=== PATIENT | female | born 1970 | race Caucasian/White ===

== ENCOUNTER 2023-10-26 10:50 | Emergency (ER) | payer OTHER, SELFPAY ==
[2023-10-26 10:51] VITALS: BP 126/68; PULSE 87; RESP 20; TEMP 36.3; O2SAT 100
[2023-10-26 11:21] LABS: Basophils Percent Auto 0.4 % (0.2-1.2); Eosinophils Absolute Auto 0.1 K/mm3 (0-0.3); Eosinophils Percent Auto 2.2 % (0-4.4); Hematocrit 41.6 % (37.0-47.0); Hemoglobin 13.2 g/dL (12.0-15.0); Immature Granulocyte Absolute 0.01 K/mm3 (0.00-0.031); Immature Granulocyte Percent A 0.2 % (0-0.5); Lymphocytes Absolute Auto 1.64 K/mm3 (0.9-3.2); Lymphocytes Percent Auto 32.9 % (18.3-44.2); Mean Corpuscular HGB Conc 31.7 g/dl (32-36); Mean Corpuscular Hemoglobin 32.1 pg (26-34); Mean Corpuscular Volume 101.2 fl (80-100); Mean Platelet Volume 9.5 fl (7.4-10.4); Monocytes Absolute Auto 0.3 K/mm3 (0.1-0.6); Monocytes Percent Auto 6.4 % (2.6-8.5); Neutrophils Absolute Auto 2.9 K/mm3 (1.3-6.7); Neutrophils Percent Auto 57.9 % (45.5-73.1); Platelet Count Result 272 k/mm3 (150-375); Red Blood Count 4.11 M/mm3 (4.2-5.4); Red Cell Distribution Width 11.9 % (11.5-14.5)
[2023-10-26 11:35] LABS: Prothrombin Time 13.1 Seconds (11.1-14.7)
[2023-10-26 11:36] LABS: Alanine Aminotransferase 19 U/L (6-35); Albumin Level 3.9 g/dL (3.5-5.1); Alkaline Phosphatase 55 U/L (38-126); Anion Gap 5 mmol/L (8-16); Aspartate Amino Transferase 24 U/L (14-36); Bilirubin,Total 0.6 mg/dL (0.2-1.3); Blood Urea Nitrogen 11 mg/dL (7-17); Calcium 8.9 mg/dL (8.4-10.2); Carbon Dioxide 32 mmol/L (22-30); Chloride 102 mmol/L (98-107); Estimated CRCL calculation 76 ml/min; Estimated Glomerular Filt Rate > 60; Glucose 103 mg/dL (65-110); Partial Thromboplastin Time 27.7 SECONDS (22.3-36.8); Potassium 4.2 mmol/L (3.4-5.0); Sodium 139 mmol/L (137-145)
[2023-10-26 11:49] VITALS: BP 115/62; PULSE 81; RESP 18; O2SAT 100
--- NOTE | 2023-10-26 11:49 | ED.GENADULT ---
HPI - General Adult General Chief complaint: Unspecified Stated complaint: GI bleed Time Seen by Provider: 10/26/23 11:01 Source: patient Mode of arrival: ambulatory Limitations: no limitations History of Present Illness HPI narrative: This is a 52-year-old female that presents to the emergency department for bright red blood per rectum. Intermittent over the last couple of weeks. Reports seeing bright red blood on the tissue when wiping. Reports she has had some trouble with constipation and has had to strain to have bowel movements. Denies fevers, abdominal pain, or diarrhea. Related Data Allergies Allergy/AdvReac Type Severity Reaction Status Date / Time NKDA Allergy Mild Uncoded 01/02/11 15:26 Review of Systems Review of Systems: CONSTITUTIONAL: Denies fever GASTROINTESTINAL: Denies abdominal pain, nausea, vomiting, or diarrhea. All systems reviewed & are unremarkable except as noted in HPI and below PMFSH Past Medical History Medical History (Updated 10/26/23 @ 11:54 by Esthela Spangler PA-C) History of anxiety Family History Family History (Updated 05/29/14 @ 07:13 by DOCTOR UNKNOWN) Father Family history of amyotrophic lateral sclerosis Social History Social History Smoking status: Never smoker Alcohol intake: current Exam Narrative: GENERAL: Well-appearing, well-nourished, and in no acute distress. HEAD: Normocephalic, atraumatic. EYES: EOMI. CHEST: Clear to auscultation. No respiratory distress. No wheezes rales or rhonchi HEART: Regular rate and rhythm. No murmur heard. Normal peripheral pulses. ABDOMEN: Soft, nontender, nondistended, normal active bowel sounds. EXTREMITIES: Normal range of motion. No edema. SKIN: Warm, dry, no rash. NEURO: No focal deficits. Alert and oriented x3. PSYCH: Normal mood and affect RECTAL: No obvious hemorrhoids or fissures on exam. Hemoccult positive Course Course Emergency Course: Patient updated on workup and agrees with plan of care Vital Signs Vital signs: Vital Signs Temperature 97.4 F L 10/26/23 10:51 Pulse Rate 87 10/26/23 10:51 Respiratory Rate 20 10/26/23 10:51 Blood Pressure 126/68 10/26/23 10:51 Pulse Oximetry 100 10/26/23 10:51 Oxygen Delivery Room Air 10/26/23 10:51 Temperature 97.4 F L 10/26/23 10:51 Pulse Rate 81 10/26/23 11:49 Respiratory Rate 18 10/26/23 11:49 Blood Pressure 115/62 10/26/23 11:49 Pulse Oximetry 100 10/26/23 11:49 Oxygen Delivery Room Air 10/26/23 10:51 Medical Decision Making MDM Narrative Medical decision making narrative: Patient presents to the emergency department for intermittent episodes of bright red blood per rectum ongoing over the last couple of weeks. She is afebrile and nontoxic appearing. Her vitals are stable. Hemoglobin is normal. She is not on anticoagulation. No obvious hemorrhoids or fissures on exam. She was Hemoccult positive. She was offered further evaluation with CT scan, she declines at this time. Will be given follow up with GI. Instructed on management of constipation. She was given warnings to return to the ER Vital Signs Vital Signs: Vital Signs Temperature 97.4 F L 10/26/23 10:51 Pulse Rate 87 10/26/23 10:51 Respiratory Rate 20 10/26/23 10:51 Blood Pressure 126/68 10/26/23 10:51 Pulse Oximetry 100 10/26/23 10:51 Oxygen Delivery Room Air 10/26/23 10:51 Temperature 97.4 F L 10/26/23 10:51 Pulse Rate 81 10/26/23 11:49 Respiratory Rate 18 10/26/23 11:49 Blood Pressure 115/62 10/26/23 11:49 Pulse Oximetry 100 10/26/23 11:49 Oxygen Delivery Room Air 10/26/23 10:51 Lab Data Lab results reviewed: Yes I reviewed the patient's lab results. 10/26/23 11:10 10/26/23 11:10 Labs: Lab Results 10/26/23 Range/Units 11:10 WBC 5.0 (4.5-10.0) K/mm3 RBC 4.11 L (4.2-5.4) M/mm3 Hgb 13.2 (12.0-15.0) g/dL Hct 41.6 (37.0-47.0) % MCV 101.
--- OUTSIDE RECORDS SUMMARY | 2023-12-12 10:32 | XMS_ITS | Referral Summary ---
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 Name Role Phone Carlita Gomez Primary Care Provider [phone] Reason for Referral * Consultation (Urgent) - New Request Specialty Diagnoses / Procedures Referred By Kaylee shaikh Referred To Contact GASTROENTEROLOGY Diagnoses Rectal bleed Hemorrhoids Carlita Gomez FNP [address] [place] [address] Matteo Mckeon MD [address] [facility] [address] [place] [id number] Referral ID Status Reason Start Date Expiration Date V isits Requested Visits Authorized [id number] New Request 11/03/2023 11/03/2024 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
== END 2023-10-26 12:46 | disposition home or self-care (01) ==
PROVIDERS: Emergency Provider Physician Assistant
DX: K62.5 Hemorrhage of anus and rectum (principal)
CPT/HCPCS: 36415; 80053; 85025; 85610; 85730; 86850; 86900; 86901; 99283